=== PATIENT | male | born 2000 | race Caucasian/White ===

== ENCOUNTER 2020-08-18 18:11 | Emergency (ER) | payer OTHER, SELFPAY ==
--- NOTE | ~2020-08-18 | XR_ITS ---
EXAMINATION: XR chest 1V portable DATE: 08/18/2020 18:32 INDICATION: Fever and headache. TECHNIQUE: A single frontal view of the chest was obtained on 2 radiographs. COMPARISON: None. FINDINGS: The chest demonstrates clear lungs without pneumonia, pleural effusion, or pneumothorax. Th e heart size is normal. IMPRESSION: 1. No acute cardiopulmonary disease. Reviewed, dictated and finalized at location A. [employer]
[2020-08-18 18:15] VITALS: BP 100/58; PULSE 96; RESP 20; TEMP 37.2; O2SAT 100
--- NOTE | 2020-08-18 18:53 | ED.URI ---
HPI - URI/Sore Throat General Chief Complaint: Upper Respiratory Infection Stated Complaint: fever, sore throat, headache Time Seen by Provider: 08/18/20 18:22 Source: patient and family Mode of arrival: ambulatory Limitations: no limitations History of Present Illness HPI Narrative: Patient presents with sore throat, headache and fever for the last 24 hours. 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 Patient denies exposure to anybody known to have COVID-19. Patient family are asymptomatic. Related Data Home Medications Medication Instructions Recorded Confirmed No Home Medications 08/18/20 08/18/20 Allergies Allergy/AdvReac Type Severity Reaction Status Date / Time Bleach (Sodium Hypochlorite) Allergy Rash Verified 08/18/20 18:20 Review of Systems Review of Systems: Narrative: CONSTITUTIONAL: Denies fever, chills, or sweats. EYES: Denies visual changes, redness, or discharge. ENT: Complaining of sore throat CARDIOVASCULAR: Denies chest pain, palpitations, or edema. RESPIRATORY: Denies cough or dyspnea. GASTROINTESTINAL: Denies abdominal pain, nausea, vomiting, or diarrhea. GENITOURINARY: Denies dysuria or hematuria. SKIN: Denies rash or itching. MUSCULOSKELETAL: Denies back pain, joint pain, or myalgia. NEUROLOGIC: Complaining of headache PSYCHIATRIC: Denies anxiety or depression. [facility] Social History Social History (Updated 08/18/20 @ 18:55 by Selina Flores MD) Social History: No smoking or drinking Second hand tobacco smoke exposure: No Exam Narrative: Exam Narrative: General appearance: Well-developed, well-nourished Skin: Normal color ENT, oropharyngeal erythema Eyes: Clear conjunctiva Neck: Supple, nontender Chest and respiratory: Airway patent, no respiratory distress, no accessory muscle use Heart: Regular rate/rhythm Neurologic: Alert and oriented ?3, Course Course Emergency Course: Stable Vital Signs Vital signs: Vital Signs Temperature 37.2 C 08/18/20 18:15 Pulse Rate 96 08/18/20 18:15 Respiratory Rate 08/18/20 18:15 Blood Pressure 100/58 L 08/18/20 18:15 Pulse Oximetry 100 08/18/20 18:15 Temperature 37.2 C 08/18/20 18:15 Pulse Rate 96 08/18/20 18:15 Respiratory Rate 20 08/18/20 18:15 Blood Pressure 100/58 L 08/18/20 18:15 Pulse Oximetry 100 08/18/20 18:15 MDM - URI/Sore Throat Lab Data Labs: Lab Results 08/18/20 Range/Units 18:23 SARS-CoV-2 RNA (RT-PCR) Pending Strep Screen Presumptive Negative *(Reference Range: Negative)* Critical Care Time Critical Care Time Critical Care Time: No Discharge Plan Discharge Clinical Impression: Acute pharyngitis Qualifiers: Pharyngitis/tonsillitis etiology: unspecified etiology Qualified Code(s): J02.9 - Acute pharyngitis, unspecified Patient Disposition: Home, Self-Care Condition: Stable Instructions: Pharyngitis (ED) Additional Instructions: Return if symptoms are worsening , call your family physician for appointment, take Tylenol as as needed for aches and pain, continue home medications.. Remain isolated at home until YOU get the COVID-19 test result. Wear mask, 6 feet distance, wash hands. Cough drops, encourage fluid intake, Tylenol and ibuprofen as needed for aches and fever. Prescriptions: No Action No Home Medications RF: 0 Follow-up/Referrals: PHYSICIAN,KITCHEN CLEANER [Primary Care Provider] - Ger Jackson MD [Physician] -
[2020-08-18 19:07] VITALS: BP 112/82; PULSE 68; RESP 18; O2SAT 99
[2020-08-20 11:58] LABS: SARS-CoV-2 RNA PCR Negative
== END 2020-08-18 19:15 | disposition home or self-care (01) ==
LOC: ANHED 19:27
PROVIDERS: Emergency Provider Emergency Medicine
DX: J02.9 Acute pharyngitis, unspecified (principal); Z20.828 Contact with and (suspected) exposure to other viral communicable diseases
CPT/HCPCS: 71045; 87081; 87147; 87635; 87880; 99283; C9803; U0003

== ENCOUNTER 2021-07-05 09:07 | Emergency (ER) | payer OTHER, SELFPAY ==
[2021-07-05 09:27] VITALS: BP 122/70; PULSE 92; RESP 18; TEMP 36.8; O2SAT 100
--- NOTE | 2021-07-05 10:09 | ED.SKABFB ---
HPI - Skin/Abscess/Foreign Bdy General Chief complaint: Skin/Abscess/Foreign Body <Emma Best PA-C - Last Filed: 07/05/21 11:44> Stated complaint: right axilla wound <Emma Best PA-C - Last Filed: 07/05/21 11:44> Time Seen by Provider: 07/05/21 09:53 <Emma Best PA-C - Last Filed: 07/05/21 11:44> Source: patient <Emma Best PA-C - Last Filed: 07/05/21 11:44> Mode of arrival: ambulatory <Emma Best PA-C - Last Filed: 07/05/21 11:44> Limitations: no limitations <Emma Best PA-C - Last Filed: 07/05/21 11:44> History of Present Illness HPI narrative: This is a 21-year-old male that presents to the emergency department for an abscess to the right axilla over the last 3 days. Reports the area is red and painful. Reports abnormal drainage from the area. Denies fevers. <Emma Best PA-C - Last Filed: 07/05/21 11:44> Related Data Allergies/Adverse reactions: Allergies Allergy/AdvReac Type Severity Reaction Status Date / Time Bleach (Sodium Hypochlorite) Allergy Rash Verified 07/05/21 09:34 <Emma Best PA-C - Last Filed: 07/05/21 11:44> Review of Systems Review of Systems: CONSTITUTIONAL: Denies fever SKIN: Reports abscess <Emma Best PA-C - Last Filed: 07/05/21 11:44> All systems reviewed & are unremarkable except as noted in HPI and below <Emma Best PA-C - Last Filed: 07/05/21 11:44> [facility] Past Medical History Medical History: Medical History (Updated 07/05/21 @ 11:43 by Emma Best PA-C) No active medical problems <Emma Best PA-C - Last Filed: 07/05/21 11:44> Social History Social History: Social History (Updated 07/05/21 @ 10:10 by Emma Best PA-C) Second hand tobacco smoke exposure: No Substance use: never <Emma Best PA-C - Last Filed: 07/05/21 11:44> Exam Narrative: GENERAL: Well-appearing, well-nourished, and in no acute distress. HEAD: Normocephalic, atraumatic. EYES: EOMI CHEST: No respiratory distress. HEART: Regular rate EXTREMITIES: Normal range of motion. No edema. Right axilla with 4cm area of erythema and edema with central fluctuance. Moderate surrounding erythema SKIN: Warm, dry, no rash. NEURO: No focal deficits. Alert and oriented x3. 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 I was available for evaluation and consultation, I agree with the documentation as above <Christopher Agrawal MD - Last Filed: 07/05/21 14:32> Vital Signs Vital signs: Vital Signs Temperature 36.8 C 07/05/21 09:27 Pulse Rate 92 07/05/21 09:27 Respiratory Rate 18 07/05/21 09:27 Blood Pressure 122/70 07/05/21 09:27 Pulse Oximetry 100 07/05/21 09:27 Temperature 36.8 C 07/05/21 09:27 Pulse Rate 92 07/05/21 09:27 Respiratory Rate 18 07/05/21 09:27 Blood Pressure 122/70 07/05/21 09:27 Pulse Oximetry 100 07/05/21 09:27 <Emma Best PA-C - Last Filed: 07/05/21 11:44> Vital Signs Temperature 36.8 C 07/05/21 09:27 Pulse Rate 92 07/05/21 09:27 Respiratory Rate 18 07/05/21 09:27 Blood Pressure 122/70 07/05/21 09:27 Pulse Oximetry 100 07/05/21 09:27 Temperature 36.8 C 07/05/21 09:27 Pulse Rate 92 07/05/21 09:27 Respiratory Rate 18 07/05/21 09:27 Blood Pressure 122/70 07/05/21 09:27 Pulse Oximetry 100 07/05/21 09:27 <Christopher Agrawal MD - Last Filed: 07/05/21 14:32> Procedures Abscess I/D upper extremity: Date of Incision: 07/05/21 <Emma Best PA-C - Last Filed: 07/05/21 11:44> Time of Incision: 11:42 <Emma Best PA-C - Last Filed: 07/05/21 11:44> Side (if applicable): right <Emma Best PA-C - Last Filed: 07/05/21 11:44> Local Anesthetic: lidocaine 1% and
== END 2021-07-05 12:01 | disposition home or self-care (01) ==
PROVIDERS: Emergency Provider Emergency Medicine
DX: L02.411 Cutaneous abscess of right axilla (principal)
CPT/HCPCS: 10061; 87070; 87147; 87181; 87186; 87205; 99283; A9270